=== PATIENT | female | born 1995 | race Caucasian/White ===

== ENCOUNTER 2016-10-11 21:47 | Outpatient (CLI) | payer MEDICAID ==
[~2016-10-11] VITALS: Ht 160 cm; Wt 75.0 kg
[~2016-10-11 21:47] MED LIST: PRENAT PO
[2016-10-11 21:56] VITALS: Ht 160 cm; Wt 75.0 kg
[2016-10-11 21:57] VITALS: BP 129/75; PULSE 129; RESP 18
[2016-10-11] MEDS ORDERED: DEXTROSE 5%-LR 1,000 ML IV SCH (22:27)
--- NOTE | 2016-10-11 22:56 | RADRPT ---
AMENDMENT: 10/11/2016 11:44:41 PM Jesse Gonzalez M.D No evidence of placental abruption is seen on the provided images. The cervix is not visualized, pr ecluding evaluation for placenta previa. PROCEDURE: OB ultrasound for biophysical profile CLINICAL INDICATION: Contractions. TECHNIQUE: Multiple sonographic images of the pelvis were obtained. Transabdominal view of the gr avid uterus are available for review. The images were reviewed on a PACS workstation. COMPARISON: 06/10/2016. FINDINGS: breathing movement = 2/2 tone = 2/2 motion = 2/2 Amniotic fluid = 2/2 RUBEN = 16.6 cm Single live intrauterine in cephalic presentation with cardiac activity (154 bpm). Anterior placenta, grade 1. IMPRESSION: 1. Single viable intrauterine gestation. 2. Biophysical profile = 05/11. 3. RUBEN = 16.6 cm. RPTAT: HTAR .Jesse Gonzalez MD, Date Time Electronically viewed and signed by .Jesse Gonzalez MD, on 10/11/2016 23:45 .R/
--- NOTE | 2016-10-12 01:15 | QN ---
Documentation Comment Laborist for an ER panel pt. 20 y.o. with an IUP at 31 w 4 d c/o fever and body aches since yesterday. Pt reports a temperature of 101.3 earlier today for which she took Tylenol. Angelica wolf also has a non-productive cough and has noticed some vaginal fluid after coughing. It is clear,per the pt. + movement. No vaginal bleeding. Past medical hx; none. Past surgical history: x 2. NKDA. T+ 98.4 BP+129/75. NST:baseline 150 BPM with accels to 170 BPM. No decsl. No UC's. Rom-Plus test negative x 2. fibronectin was negative. Cx: thick/FT/-3. BPP 8/8 and the RUBEN is 16.6. Pt was hydrated with a liter of D5LR and felt much less achey and was ready for discharge home. A: IUP at 31 weeks 5 days. Upper respiratory infection. Plan: D/C home with instructions to hydrate, rest and to call her doctor for a Z [place] if her cough becomes productive with a green or yellow phlegm. She may take Tylenol for body aches and fever. VLADISLAV GOODRICH MD Oct 12, 2016 01:15
--- NOTE | 2016-10-12 02:18 | TRIAGE ---
OB Triage Datetime Report Generated by CPN: 10/12/2016 02:18 Datetime: 10/12/2016 01:00 Stage of : OB Triage Pain Presence: None/Denies Pain Assessment Comments: PT STATES SHE FEELS BETTER Datetime: 10/12/2016 00:40 Stage of : OB Triage Labor Evaluation Frequency: 0 Monitor Mode: External Quality: Mild Pattern: Normal: <= 5 Contractions in 10 Minutes Resting Tone [place]: Relaxed Contraction Comments: IRRITABILITY NOTED Heart Rate FHR Baseline Rate: 155 Monitor Mode: External US FHR Baseline Changes: No Baseline Change Variability: Moderate 6-25 bpm Accelerations: 15X15 Decelerations: None Category: Category I Datetime: 10/11/2016 23:40 Labor Evaluation Frequency: 0 Heart Rate FHR Baseline Rate: 155 Monitor Mode: External US FHR Baseline Changes: No Baseline Change Variability: Moderate 6-25 bpm Accelerations: 15X15 Decelerations: None Category: Category I Datetime: 10/11/2016 23:23 Stage of : OB Triage Datetime: 10/11/2016 22:40 Labor Evaluation Frequency: IRREGULAR Monitor Mode: External Duration (sec)2399: 60 Quality: Mild Pattern: Normal: <= 5 Contractions in 10 Minutes Resting Tone [place]: Relaxed Heart Rate FHR Baseline Rate: 155 Monitor Mode: External US FHR Baseline Changes: No Baseline Change Variability: Moderate 6-25 bpm Accelerations: 15X15 Decelerations: None Category: Category I Datetime: 10/11/2016 22:24 Stage of : OB Triage Datetime: 10/11/2016 22:15 Stage of : OB Triage Vaginal Exam Dilatation (cms): 0.0 Effacement (%): 0 Station: -3 Exam By: Sami CARCAMO RN Membrane Status: PT UNSURE IF LEAKING Vaginal Bleeding: None Pool: Negative ROM Test Kit: OBTAINED Cervix, Consistency: Firm Cervix, Position: Posterior Datetime: 10/11/2016 21:57 Time of Arrival: 10/11/2016 21:43 EGA: 31.4 Arrived By: Wheelchair Arrived From: Home Chief Complaint: C/O FEVER AND BODY ACHE Movement: Present Rupture of Membranes: Unsure Vaginal Bleeding: None Recent Sexual Intercouse: Denies Abdominal Trauma: Not Applicable Patient Complaints: None Time Provider Notified: 10/11/2016 22:24 Provider Notified: DR GOODRICH Initial Plan: CALL MD, EFM Datetime: 10/11/2016 21:55 Stage of : OB Triage Maternal Assessment Level of Consciousness: Fully Conscious DTR's/Clonus: DTRs 2+; No Clonus Headache: Denies Blurred Vision: No Respiratory Effort: Unlabored; Regular Rhythm; Equal Expansion Breath Sounds, Left: Clear and Equal Breath Sounds, Right: Clear and Equal Nausea/Vomiting: Denies RUQ Epigastric Pain: Denies Lower Extremities Edema: None Degree: None Upper Extremities Edema: None Degree: None Facial Edema: None Temperature Route: Oral Fall Risk Assessment History of Falling: (0) No Secondary Diagnosis: (0) No Ambulatory Aid: (0) Bedrest/Nurse Assist IV Therapy: (0) No Gait: (0) Normal/Bedrest/Immobile Mental Status: (0) Oriented to Own Ability Fall Score: 0 Fall Risk Score Definition: No Risk: No action required Monitor Mode: External Monitor Mode: External US Pain Assessment Pain Scale: 8 Pain Presence: Constant Pain Type: Ache Pain Location: Other (Annotations: WHOLE BODY) Datetime: 09/28/2016 18:43 Comments: PT SEEN BY DR FOROOHAR.SP EXAM DONE.NO REDNESS NOTICED. CX CLOSED.PT DC HOME DC INSTRUCT IONS GIVEN Datetime: 09/28/2016 18:13 Labor Evaluation Frequency: NONE Pattern: Normal: <= 5 Contractions in 10 Minutes Resting Tone [place]: Relaxed Heart Rate FHR Baseline Rate: 135 Monitor Mode: External US FHR Baseline Changes: No Baseline Change Variability: Moderate 6-25 bpm Accelerations: 15X15 Decelerations: None Category: Category I Datetime: 09/28/2016 17:38 EGA: 29.5 Maternal Assessment Level of Consciousness: Fully Conscious DTR's/Clonus: DTRs 2+; No Clonus Headache: Denies Blurred Vision: No Respiratory Effort: Unlabored; Regular Rhythm; Equal Expansion Breath Sounds, Left: Clear and Equal Breath Sounds, Right: Clear and Equal Nausea/Vomiting: Denies RUQ Epigastric Pain: Denies Lower Extremities Edema: None Degree: None Upper Extremities Edema: None Degree: None Facial Edema: None Fall Risk Assessment History of Falling: (0) No Secondary Diagnosis: (0) No Ambulatory Aid: (0) Bedrest/Nurse Assist IV Therapy: (0) No Gait: (0) Normal/Bedrest/Immobile Mental Status: (0) Oriented to Own Ability Fall Score: 0 Fall Risk Score Definition: No Risk: No action required Labor Evaluation Frequency: NONE Monitor Mode: External Pattern: Normal: <= 5 Contractions in 10 Minutes Heart Rate FHR Baseline Rate: 140 Monitor Mode: External US FHR Baseline Changes: No Baseline Change Variability: Moderate 6-25 bpm Accelerations: 15X15 Decelerations: None Category: Category I Pain Presence: None/Denies Datetime: 09/28/2016 17:36 Time of Arrival: 09/28/2016 17:36 Arrived By: Ambulatory Arrived From: Other Unit in Hospital Chief Complaint: FROM E.R C/O VAGINAL ITCHING Movement: Present Contractions: Denies/Absent Rupture of Membranes: Denies Vaginal Bleeding: None Vaginal Discharge: Denies Recent Sexual Intercouse: Denies Abdominal Trauma: Not Applicable Patient Complaints: Other Time Provider Notified: 09/28/2016 17:30 Provider Notified: BERNICE Initial Plan: NST.UA SENT Datetime: 09/28/2016 17:32 Comments: DR QUEEN INFORMED.ORDERS RECEIVED
== END 2016-10-12 01:12 | disposition home or self-care (01) ==
LOC: L-D 21:47 → OBT 21:47
PROVIDERS: ATTEND Obstetrics & Gynecology
DX: O99.513 Diseases of the respiratory system complicating pregnancy, third trimester (principal); J06.9 Acute upper respiratory infection, unspecified; Z3A.31 31 weeks gestation of pregnancy
CPT/HCPCS: 36415; 76818; 82731; 84112; 96360; 96361; J7121; Z7500; G0463

== ENCOUNTER 2016-11-17 20:47 | Outpatient (CLI) | payer MEDICAID ==
[~2016-11-17] VITALS: Ht 157.5 cm; Wt 77.4 kg
[2016-11-17 20:58] VITALS: BP 125/68; PULSE 77; RESP 18
[2016-11-17] MEDS ORDERED: CALC600T11 PO (21:03)
[2016-11-17] MEDS ORDERED: FERR134T PO (21:03)
[2016-11-17] MEDS ORDERED: TERBUTALINE 1 MG/ML INJ SC ONE (22:00)
[2016-11-17 22:10] LABS: ADD UMIC NO; URINE BILIRUBIN (Dip) NEGATIVE (NEGATIVE); URINE BLOOD (Dip) NEGATIVE (NEGATIVE); URINE COLOR LT. YELLOW (YELLOW); URINE GLUCOSE (Dip) NEGATIVE (NEGATIVE); URINE KETONES (Dip) 40 (NEGATIVE); URINE LEUKOCYTE ESTERASE (Dip) NEGATIVE (NEGATIVE); URINE NITRITE (Dip) NEGATIVE (NEGATIVE); URINE TOTAL PROTEIN (Dip) NEGATIVE (NEGATIVE); URINE UROBILINOGEN (Dip) 0.2 E.U./dL (0.1-1.0)
--- NOTE | 2016-11-17 23:56 | QN ---
Documentation Comment Laborist ER panel pt 20 y.o. with an IUP at 36 weeks 6 days, c/o UC's. Pt had had 2 prior C/S' s. She goes to a clinic with a Dr Maier who apparently only delivers at [facility] but pt wants to deliver here. The patient states that she was told she would be "assigned" a doctor here for that but it has not yet happened. Pt lives nearby, apparently. No VB. No leaking. PMHx: none. PSHx: C/S x 2. POBHx: x 1, C/S x 2. NKDA. T= 97.8. BP 125/68. NST:baseline 130 bpm with accels to 160 bpm. No decels. UC's were q 2-5 minutes. After p.o. hydration and terbutaline once they basically went away. CX: 50%/ fingertip/-2-3. A: IUP at 36 weeks 6 days. False labor. Previous x 2- for repeat. Pt given a note to ask for a copy of her records and to ask to assign her to her delivering doctor NOW as the doctor at the clinic only delivers at [facility]. VLADISLAV GOODRICH MD Nov 17, 2016 23:56
--- NOTE | 2016-11-18 00:36 | TRIAGE ---
OB Triage Datetime Report Generated by CPN: 11/18/2016 00:36 Datetime: 11/17/2016 22:36 Stage of : OB Triage Monitor Mode: External Quality: Mild Resting Tone [place]: Relaxed Contraction Comments: toco replaced Heart Rate FHR Baseline Rate: 135 Monitor Mode: External US FHR Baseline Changes: No Baseline Change Variability: Moderate 6-25 bpm Accelerations: 15X15 Decelerations: None Category: Category I Pain Assessment Pain Scale: 5 Pain Presence: Intermittent Pain Type: Cramping; Dull; Pressure; Ache Pain Location: Abdomen; Back Datetime: 11/17/2016 22:03 Monitor Mode: External Quality: Mild Pattern: Normal: <= 5 Contractions in 10 Minutes Resting Tone [place]: Relaxed Heart Rate FHR Baseline Rate: 135 Monitor Mode: External US FHR Baseline Changes: No Baseline Change Variability: Moderate 6-25 bpm Accelerations: 15X15 Decelerations: None Category: Category I Datetime: 11/17/2016 21:45 Stage of : OB Triage Labor Evaluation Frequency: OCCAS Monitor Mode: External Duration (sec)2399: 20-40SEC Quality: Mild Pattern: Normal: <= 5 Contractions in 10 Minutes Resting Tone [place]: Relaxed Heart Rate FHR Baseline Rate: 135 Monitor Mode: External US FHR Baseline Changes: No Baseline Change Variability: Moderate 6-25 bpm Accelerations: 15X15 Decelerations: None Category: Category I Datetime: 11/17/2016 21:12 Stage of : OB Triage Datetime: 11/17/2016 21:11 Vaginal Exam Dilatation (cms): 0.5 Effacement (%): 50 Station: -2 Exam By: ZACOPE Membrane Status: Intact Amniotic Fluid Odor: None Vaginal Bleeding: None Cervix, Consistency: Moderate Cervix, Position: Posterior Datetime: 11/17/2016 21:02 Monitor Mode: External Quality: Mild Pattern: Normal: <= 5 Contractions in 10 Minutes Resting Tone [place]: Relaxed Heart Rate FHR Baseline Rate: 135 Monitor Mode: External US FHR Baseline Changes: No Baseline Change Variability: Moderate 6-25 bpm Accelerations: 15X15 Decelerations: None Category: Category I Datetime: 11/17/2016 20:51 Maternal Assessment Level of Consciousness: Fully Conscious Headache: Denies Blurred Vision: No Nausea/Vomiting: Denies RUQ Epigastric Pain: Denies Facial Edema: None Labor Evaluation Frequency: placed Monitor Mode: External Heart Rate FHR Baseline Rate: 140 Monitor Mode: External US Pain Assessment Pain Scale: 8 Pain Presence: Constant Pain Type: Dull; Pressure Pain Location: Back; Perineum Datetime: 11/17/2016 20:50 Time of Arrival: 11/17/2016 20:44 EGA: 36.6 Arrived By: Wheelchair Arrived From: Home Chief Complaint: w/ hx c/s x3 w/ c/o back pain and vag pressure Movement: Present Contractions: Occasional Rupture of Membranes: Denies Vaginal Bleeding: None Vaginal Discharge: Denies Recent Sexual Intercouse: Denies Abdominal Trauma: Not Applicable Patient Complaints: Back Pain Time Provider Notified: 11/17/2016 21:11 Provider Notified: Dr Almaraz Initial Plan: EFM, SVE Datetime: 10/11/2016 21:57 EGA: 31.4 Datetime: 10/11/2016 21:55 Fall Risk Assessment Fall Score: 0 Fall Risk Score Definition: No Risk: No action required Datetime: 09/28/2016 17:38 EGA: 29.5 Fall Risk Assessment Fall Score: 0 Fall Risk Score Definition: No Risk: No action required
== END 2016-11-17 23:50 | disposition home or self-care (01) ==
LOC: OBT 20:47 → L-D 20:48 → OBT 23:50
PROVIDERS: ATTEND Obstetrics & Gynecology
DX: O47.03 False labor before 37 completed weeks of gestation, third trimester (principal); Z3A.36 36 weeks gestation of pregnancy
CPT/HCPCS: 81003; J3105; G0463

== ENCOUNTER 2016-11-23 01:00 | Outpatient (CLI) | payer MEDICAID ==
[~2016-11-23] VITALS: Ht 157.5 cm; Wt 79.5 kg
[~2016-11-23 01:00] MED LIST changes: +CALC600T11 PO; +FERR134T PO
[2016-11-23 01:07] VITALS: BP 125/71; PULSE 93; RESP 18; Ht 157.5 cm; Wt 79.5 kg
[2016-11-23 03:02] LABS: ADD UMIC NO; URINE BILIRUBIN (Dip) NEGATIVE (NEGATIVE); URINE BLOOD (Dip) NEGATIVE (NEGATIVE); URINE COLOR LT. YELLOW (YELLOW); URINE GLUCOSE (Dip) NEGATIVE (NEGATIVE); URINE KETONES (Dip) NEGATIVE (NEGATIVE); URINE LEUKOCYTE ESTERASE (Dip) NEGATIVE (NEGATIVE); URINE NITRITE (Dip) NEGATIVE (NEGATIVE); URINE TOTAL PROTEIN (Dip) NEGATIVE (NEGATIVE); URINE UROBILINOGEN (Dip) 0.2 E.U./dL (0.1-1.0)
[2016-11-23] MEDS ORDERED: HYDROCODONE/APAP (5/325) TAB PO ONE (03:30)
--- NOTE | 2016-11-23 03:43 | QN ---
Documentation Comment Comment Laborist ER panel pt 20 y.o. with an IUP at 37 weeks 5 days, c/o back pain since 1900. Pt had had 2 prior C/S's. She has been going to a clinic with a Dr Maier who apparently only delivers at [facility] but pt wants to deliver here. The patient states that she was told she would be "assigned" a doctor here for that and that seems to be Dr Duke. No VB. No leaking. PMHx: none. PSHx: C/S x 2. POBHx: x 1, C/S x 2. NKDA. T= 98.4. BP 125/71. NST:baseline 130 bpm with accels to 150 bpm. No decels. No UC's noted. CX: 30%/ fingertip/-3. A: IUP at 37 weeks 5 days. False labor. Previous x 2- for repeat. P: [place] 5/325 for her back pain, then d/c home. VLADISLAV GOODRICH MD Nov 23, 2016 03:43
--- NOTE | 2016-11-23 04:44 | TRIAGE ---
OB Triage Datetime Report Generated by CPN: 11/23/2016 04:44 Datetime: 11/23/2016 04:32 Labor Evaluation Frequency: NONE NOTED AT THIS TIME Monitor Mode: External Resting Tone [place]: Relaxed Heart Rate FHR Baseline Rate: 125 Monitor Mode: External US Variability: Moderate 6-25 bpm Accelerations: 15X15 Decelerations: None Category: Category I Pain Assessment Pain Scale: 4 Pain Presence: Intermittent Pain Type: Cramping; Ache Pain Location: Back Pain Relief Measures: Comfort Measures Datetime: 11/23/2016 03:53 Pain Assessment Pain Scale: 5 Pain Presence: Intermittent Pain Type: Cramping; Ache Pain Location: Back Pain Relief Measures: Pain Medication Given; Comfort Measures Datetime: 11/23/2016 03:30 Labor Evaluation Frequency: NONE AT THIS TIME Monitor Mode: External Resting Tone [place]: Relaxed Heart Rate FHR Baseline Rate: 135 Monitor Mode: External US Variability: Moderate 6-25 bpm Accelerations: 15X15 Decelerations: None Category: Category I Datetime: 11/23/2016 02:30 Labor Evaluation Frequency: NONE AT THIS TIME Monitor Mode: External Resting Tone [place]: Relaxed Heart Rate FHR Baseline Rate: 140 Monitor Mode: External US Variability: Moderate 6-25 bpm Accelerations: 15X15 Decelerations: None Category: Category I Datetime: 11/23/2016 01:39 Vaginal Exam Dilatation (cms): 0.5 Effacement (%): 30 Station: -3 Exam By: Alphonse PAVON RN Membrane Status: Intact Vaginal Bleeding: None Cervix, Consistency: Firm Cervix, Position: Posterior Datetime: 11/23/2016 01:37 Labor Evaluation Frequency: NONE NOTED AT THIS TIME Monitor Mode: External Resting Tone [place]: Relaxed Heart Rate FHR Baseline Rate: 140 Monitor Mode: External US Variability: Moderate 6-25 bpm Accelerations: 15X15 Decelerations: None Category: Category I Datetime: 11/23/2016 01:09 Time of Arrival: 11/23/2016 00:57 EGA: 37.5 Arrived By: Ambulatory Arrived From: Home Chief Complaint: BACK PAIN SINCE 1899 Movement: Present Contractions: Irregular Rupture of Membranes: Denies Vaginal Bleeding: None Vaginal Discharge: Denies Recent Sexual Intercouse: Denies Abdominal Trauma: Not Applicable Patient Complaints: Back Pain Time Provider Notified: 11/23/2016 01:43 Provider Notified: DELSHAD Initial Plan: EFM X2, SVE Datetime: 11/23/2016 01:07 Stage of : OB Triage Assessment Type: Triage Maternal Assessment Level of Consciousness: Fully Conscious DTR's/Clonus: DTRs 2+; No Clonus Headache: Denies Blurred Vision: No Respiratory Effort: Unlabored; Regular Rhythm; Equal Expansion Breath Sounds, Left: Clear and Equal Breath Sounds, Right: Clear and Equal Nausea/Vomiting: Denies RUQ Epigastric Pain: Denies Lower Extremities Edema: None Degree: None Upper Extremities Edema: None Degree: None Facial Edema: None Temperature Route: Oral Fall Risk Assessment History of Falling: (0) No Secondary Diagnosis: (0) No Ambulatory Aid: (0) Bedrest/Nurse Assist IV Therapy: (0) No Gait: (0) Normal/Bedrest/Immobile Mental Status: (0) Oriented to Own Ability Fall Score: 0 Fall Risk Score Definition: No Risk: No action required Pain Assessment Pain Scale: 6 Pain Presence: Intermittent Pain Type: Cramping; Ache Pain Location: Back Pain Relief Measures: Comfort Measures Datetime: 11/23/2016 01:06 Monitor Mode: External (Annotations: APPLIED) Monitor Mode: External US (Annotations: APPLIED) Datetime: 11/17/2016 23:37 Stage of : OB Triage Monitor Mode: External Quality: Mild Pattern: Normal: <= 5 Contractions in 10 Minutes Resting Tone [place]: Relaxed Heart Rate FHR Baseline Rate: 135 Monitor Mode: External US FHR Baseline Changes: No Baseline Change Variability: Moderate 6-25 bpm Accelerations: 15X15 Decelerations: None Category: Category I Datetime: 11/17/2016 20:50 EGA: 36.6 Datetime: 10/11/2016 21:57 EGA: 31.4 Datetime: 10/11/2016 21:55 Fall Score: 0 Fall Risk Score Definition: No Risk: No action required Datetime: 09/28/2016 17:38 EGA: 29.5 Fall Score: 0 Fall Risk Score Definition: No Risk: No action required
== END 2016-11-23 04:40 | disposition home or self-care (01) ==
LOC: OBT 01:00 → L-D 01:00 → OBT 04:40
PROVIDERS: ATTEND Obstetrics & Gynecology
DX: O47.1 False labor at or after 37 completed weeks of gestation (principal); Z3A.37 37 weeks gestation of pregnancy
CPT/HCPCS: 81003; Z7500; Z7610; G0463

== ENCOUNTER 2016-11-26 19:19 | Inpatient (IN) | payer MEDICAID ==
[~2016-11-26] VITALS: Ht 160 cm; Wt 78.6 kg
[~2016-11-26 19:19] MED LIST changes: -CALC600T11 PO; -FERR134T PO
[2016-11-26 19:40] VITALS: Ht 160 cm; Wt 78.6 kg
[2016-11-26 19:41] VITALS: BP 129/74; PULSE 93; RESP 18
[2016-11-26] MEDS ORDERED: LACTATED RINGER'S 1,000 ML IV SCH (21:10)
[2016-11-26] MEDS ORDERED: MISOPROSTOL 200 MCG TAB PR PRN ×2 (21:30→23:00)
[2016-11-26] MEDS ORDERED: OXYTOCIN 30 UNITS/LR 500 ML IV PRN ×2 (21:30→23:00)
[2016-11-26] MEDS ORDERED: CARBOPROST 250 MCG INJ IM PRN ×2 (21:30→23:00)
[2016-11-26] MEDS ORDERED: CEFAZOLIN 2 GM/50 ML (PMX) 50 ML IV SCH (21:30)
[2016-11-26] MEDS ORDERED: METHYLERGONOVINE 0.2 MG INJ IM PRN ×2 (21:30→23:00)
[2016-11-26] MEDS ORDERED: CITRIC ACID/NA CITRATE 30 ML CUP PO ONE (21:30)
[2016-11-26 21:32] LABS: ADD SCAN DIFF NO
[2016-11-26 21:38] LABS: BASOPHILS % 0.2 % (0.0-2.0); EOSINOPHILS # 0.5 10^3/ul (0.0-0.5); EOSINOPHILS % 3.9 % (0.0-7.0); HEMATOCRIT 38.9 % (37.0-47.0); HEMOGLOBIN 13.1 g/dl (12.0-16.0); LYMPHOCYTES % 16.6 % (15.0-51.0); MEAN CORPUSCULAR HEMOGLOBIN 30.3 pg (29.0-33.0); MEAN CORPUSCULAR HGB CONC 33.7 g/dl (32.0-37.0); MEAN CORPUSCULAR VOLUME 89.8 fl (82.0-101.0); MONOCYTE # 0.6 10^3/ul (0.3-0.9); MONOCYTES % 4.8 % (0.0-11.0); NEUTROPHILS % 73.5 % (39.0-77.0); PLATELET COUNT 170 10^3/UL (140-415); RED BLOOD COUNT 4.33 10^6/ul (4.20-5.40); RED CELL DISTRIBUTION WIDTH 13.3 % (11.5-14.5); WHITE BLOOD COUNT 12.2 10^3/ul (4.8-10.8)
--- NOTE | 2016-11-26 21:41 | HP ---
Date/Time of Note Date/Time of Note DATE: 11/26/16 TIME: 21:16 OB - History Hx of Present Free Text/Dictation 20yo P3@ 38 wks, previous c/d x 2, presents in early labor, ctx q minute no vb, no lof, good fm Chief Complaint: ctx, prior c/d x 2 Last Menstrual Period: Mar 04, 2016 Estimated Due Date: Dec 09, 2016 : 4 Para: 3 Care: Good Care Obstetrical Complications: None Past Family/Social History * Past Medical, Surgical, Family and Obstetric Histories reviewed from chart. Blood Type: A+ Rubella: immune RPR/VDRL: Negative GBS Status: Negative HBsAG: Negative OB Admission Exam Vital Signs Vital Signs Vital Signs Date Time Temp Pulse Resp B/P Pulse Ox O2 Delivery O2 Flow Rate FiO2 11/26/16 19:41 97.8 93 18 129/74 Room Air Physical Exam HEENT: WNL Cervical Dilatation: 1cm Effacement: 75% Station: -2 Membranes: Intact Accelerations: Accelerations Present Decelerations: No Decelerations Varibility: Moderate Contractions on Admission: < 5 Minutes Apart Intensity: Moderate OB Assessment/Plan Other Assessment: 20 yo P3 @ 38 wks, prior c/d x 2, in early labor - prior c/d x 2- explained risks of bleeding, infection, possible accreta, possible hysterectomy, possible need for blood transfusion Other plan: Will proceed to repeat c/d EDDIE HEARD MD Nov 26, 2016 21:41
[2016-11-26 21:45] LABS: INR 0.91; PARTIAL THROMBOPLASTIN TIME 23.3 Sec (25.0-35.0); PROTIME 12.2 Sec (12.2-14.2)
[2016-11-26] MEDS ORDERED: morphine SULFATE/PF (10 MG/10 ML) INJ ONE (21:50)
[2016-11-26] MEDS ORDERED: PHENYLephrine (100 MCG/ML) 5ML SYG ONE (22:02)
[2016-11-26] MEDS ORDERED: KETOROLAC 30 MG INJ ONE (22:02)
[2016-11-26] MEDS ORDERED: ONDANSETRON 4 MG INJ ONE (22:02)
[2016-11-26] MEDS ORDERED: OXYTOCIN 30 UNITS/LR 500 ML IV ONE (22:48)
--- NOTE | 2016-11-26 22:56 | OPR ---
Operative Report Planned Procedure Free Text/Dictation 20 yo P w/ h/o 2 prior c/d, presented in early labor Procedure date Nov 26, 2016 Procedure(s) repeat c/d Performed by: EDDIE HEARD MD Assisting provider: RANDY DE LA ROSA MD Pre-procedure diagnosis prior c/d, early labor Anesthesia Type: spinal Procedure Description Under satisfactory [spinal] anesthesia, the patient was prepped and draped and placed in a supine position, tilted to the left. Pfannenstiel incision was made , carried through the subcutaneous tissue. Old scar was removed. Bleeders brought under control with electrocautery. Fascia incised to the length of the incision. Rectus muscles from the fascia, divided midline. Peritoneum exposed, entered bluntly. Exploration of abdomen revealed gravid uterus. Bladder flap was attempted but uterus was paper thin. Transverse incision was made in the lower segment of the uterus. Amniotic sac ruptured. [clear] amniotic fluid noted. head delivered w vaccuum assistance.[] Nasal oropharyngeal suction was performed. The baby was handed to the team for immediate attention. The placenta was delivered manually intact. Uterine cavity was cleaned with wet sponge and drainage established. Uterus closed in 2 layers using [0 vicry] in continuous fashion. Peritoneal cavity irrigated with warm saline. Sponge, needle and instrument count reported to be correct. Abdominal peritoneum closed with [2 vicryl] continuously. Rectus muscle approximated with [3 vicryl]. Fascia closed with [0 vicryl], subcutaneous tissues closed w 2 vicryl, and skin closed with eduardo. Estimated blood loss [ 800]mL. Post-Procedure Findings: Live Baby [girl], Apgars [9] and 9[], weight [6lbs 2 oz], Complications: None Pt Condition post procedure: stable Physician Certification I, the undersigned physician, hereby certify that I have discussed the procedure described in this consent form with this patient (or the patient's legal rental representative), including: * The risk and benefits of the procedure; * Any adverse reactions that may reasonably be expected to occur; * Any alternative efficacious methods of treatment which may be medically viable ; * The potential problems that may occur during recuperation; * Potential for blood transfusion and associated risks/benefits; and * Any research or economic interest I may have regarding this treatment. I further certify that the patient/legally responsible person was encouraged to ask question and that all questions were answered. EDDIE HEARD MD Nov 26, 2016 22:56
[2016-11-26] MEDS ORDERED: ACETAMINOPHEN/CODEINE #3 TAB PO PRN (23:00)
[2016-11-26] MEDS ORDERED: ONDANSETRON 4 MG INJ IV PRN ×2 (23:00)
[2016-11-26] MEDS ORDERED: KETOROLAC 30 MG INJ IV PRN (23:00)
[2016-11-26] MEDS ORDERED: MEPERIDINE 25 MG INJ IV PRN (23:00)
[2016-11-26] MEDS ORDERED: METOCLOPRAMIDE 10 MG INJ IV PRN (23:00)
[2016-11-26] MEDS ORDERED: DIPHENHYDRAMINE 50 MG INJ IV PRN ×2 (23:00)
[2016-11-26] MEDS ORDERED: HYDROmorphONE 1 MG/ML SYG IV PRN ×3 (23:00)
[2016-11-26] MEDS ORDERED: NALOXONE (0.4 MG/ML) INJ IV PRN (23:00)
[2016-11-26] MEDS ORDERED: LANOLIN 7 GM TUBE TOP PRN (23:00)
[2016-11-26] MEDS ORDERED: HYDROmorphONE (0.2 MG/ML) 10ML SYG IV PRN ×2 (23:00)
[2016-11-26] MEDS ORDERED: CEFAZOLIN 2 GM/50 ML (PMX) 50 ML IV ONE (23:00)
[2016-11-27] MEDS: OXYTOCIN 30 UNITS/LR 500 ML IV SCH ×2 (02:00→05:52)
[2016-11-27 02:30] VITALS: BP 116/59; PULSE 65; RESP 18
[2016-11-27] MEDS: HYDROmorphONE (0.2 MG/ML) 10ML SYG IV PRN ×2 (02:54→02:55)
[2016-11-27 04:30] VITALS: BP_SYST 119; BP_SYST 99; BP_DIAS 53; BP_DIAS 70; PULSE 71; PULSE 91; RESP 18
[2016-11-27] MEDS: IBUPROFEN 800 MG TAB PO SCH ×3 (06:00→22:07)
[2016-11-27 07:41] LABS: ADD SCAN DIFF NO
[2016-11-27 07:45] LABS: BASOPHILS % 0.2 % (0.0-2.0); EOSINOPHILS # 0.5 10^3/ul (0.0-0.5); HEMATOCRIT 35.5 % (37.0-47.0); HEMOGLOBIN 11.5 g/dl (12.0-16.0); LYMPHOCYTES # 2.4 10^3/ul (0.8-2.9); LYMPHOCYTES % 15.5 % (15.0-51.0); MEAN CORPUSCULAR HEMOGLOBIN 29.6 pg (29.0-33.0); MEAN CORPUSCULAR HGB CONC 32.4 g/dl (32.0-37.0); MEAN CORPUSCULAR VOLUME 91.3 fl (82.0-101.0); MONOCYTE # 0.9 10^3/ul (0.3-0.9); MONOCYTES % 5.7 % (0.0-11.0); NEUTROPHIL # 11.4 10^3/ul (1.6-7.5); NEUTROPHILS % 75.1 % (39.0-77.0); PLATELET COUNT 149 10^3/UL (140-415); RED BLOOD COUNT 3.89 10^6/ul (4.20-5.40); RED CELL DISTRIBUTION WIDTH 13.5 % (11.5-14.5); WHITE BLOOD COUNT 15.1 10^3/ul (4.8-10.8)
[2016-11-27 08:00] VITALS: BP 99/51; PULSE 77; RESP 18
[2016-11-27] MEDS: LACTATED RINGER'S 1,000 ML IV SCH ×2 (09:40→16:43)
[2016-11-27 12:15] VITALS: BP 100/50; PULSE 72; RESP 16
[2016-11-27] MEDS ORDERED: INFLUENZA VIRUS VACCINE 0.5 ML (DISPENSING) IM* ONE (14:00)
[2016-11-27 16:00] VITALS: BP 103/51; PULSE 79; RESP 18
--- NOTE | 2016-11-27 18:00 | QN ---
Documentation Comment No complaint Afebrile VSS Abdomen soft POD #1 Stable Ambulate Advance diet. NEEMA MCKEON MD Nov 27, 2016 18:00
[2016-11-27 19:20] VITALS: BP 100/62; PULSE 75; RESP 19
[2016-11-28 04:00] VITALS: BP 100/60; PULSE 80; RESP 19
[2016-11-28] MEDS: IBUPROFEN 800 MG TAB PO SCH ×3 (05:30→22:10)
[2016-11-28 07:42] LABS: ADD SCAN DIFF NO
[2016-11-28 07:49] LABS: BASOPHILS % 0.1 % (0.0-2.0); EOSINOPHILS # 0.5 10^3/ul (0.0-0.5); EOSINOPHILS % 5.2 % (0.0-7.0); HEMATOCRIT 31.3 % (37.0-47.0); HEMOGLOBIN 10.1 g/dl (12.0-16.0); LYMPHOCYTES # 1.8 10^3/ul (0.8-2.9); LYMPHOCYTES % 18.7 % (15.0-51.0); MEAN CORPUSCULAR HEMOGLOBIN 29.9 pg (29.0-33.0); MEAN CORPUSCULAR HGB CONC 32.3 g/dl (32.0-37.0); MEAN CORPUSCULAR VOLUME 92.6 fl (82.0-101.0); MEAN PLATELET VOLUME 11.1 fl (7.4-10.4); MONOCYTE # 0.7 10^3/ul (0.3-0.9); MONOCYTES % 7.5 % (0.0-11.0); NEUTROPHIL # 6.7 10^3/ul (1.6-7.5); NEUTROPHILS % 67.9 % (39.0-77.0); PLATELET COUNT 132 10^3/UL (140-415); RED BLOOD COUNT 3.38 10^6/ul (4.20-5.40); RED CELL DISTRIBUTION WIDTH 13.6 % (11.5-14.5); WHITE BLOOD COUNT 9.8 10^3/ul (4.8-10.8)
[2016-11-28 08:10] VITALS: BP 104/64; PULSE 80; RESP 16
[2016-11-28] MEDS ORDERED: INFLUENZA VIRUS VACCINE 0.5 ML (DISPENSING) IM* ONE (09:00)
[2016-11-28 16:30] VITALS: BP 117/62; PULSE 71; RESP 17
--- NOTE | 2016-11-28 16:42 | QN ---
Documentation Comment No complaint Afebrile VSS Abdomen soft Continue with present care. NEEMA MCKEON MD Nov 28, 2016 16:42
[2016-11-28] MEDS: ACETAMINOPHEN/CODEINE #3 TAB PO PRN (17:24)
[2016-11-28 19:30] VITALS: BP 102/67; PULSE 71; RESP 18
[2016-11-29] MEDS: ACETAMINOPHEN/CODEINE #3 TAB PO PRN ×2 (01:24→13:15)
[2016-11-29 04:00] VITALS: BP 112/68; PULSE 72; RESP 18
[2016-11-29] MEDS: IBUPROFEN 800 MG TAB PO SCH ×3 (05:45→22:30)
[2016-11-29 08:30] VITALS: BP 102/57; PULSE 69; RESP 18
[2016-11-29] MEDS ORDERED: INFLUENZA VIRUS VACCINE 0.5 ML (DISPENSING) IM* ONE (09:00)
--- NOTE | 2016-11-29 15:23 | QN ---
Documentation Comment pod 2 pt doing well vss exam enl ap pod 2 contineue care ANNAMARIA CORLEY MD Nov 29, 2016 15:23
[2016-11-29 19:45] VITALS: BP 117/59; PULSE 56; RESP 18
[2016-11-30 04:30] VITALS: BP 109/66; PULSE 74; RESP 18
[2016-11-30] MEDS: IBUPROFEN 800 MG TAB PO SCH ×2 (06:00→14:16)
[2016-11-30 08:15] VITALS: BP 106/66; PULSE 54; RESP 18
[2016-11-30 17:00] VITALS: BP 110/67; PULSE 58; RESP 20
--- NOTE | 2016-12-01 00:22 | DS ---
DATE OF ADMISSION: 11/26/2016 DATE OF DISCHARGE: 11/30/2016 ADMITTING DIAGNOSIS: at term with previous section, in labor. HISTORY: A 20-year-old female at 38 weeks' gestation with previous section x2 presented wi th labor contractions. On 11/26/2016, after obtaining informed consent, the patient underwent a rep eat section. The patient's operation was uncomplicated. Postoperatively, patient was give n clear liquid diet which was advanced to regular diet which she tolerated well. The patient is dis charged on postop day #4 after having had adequate bladder and bowel function. CONDITION ON DISCHARGE: Stable. DISCHARGE INSTRUCTIONS: DIET: Regular. ACTIVITIES: Pelvic rest and no strenuous activities. MEDICATIONS: 1. Motrin as needed for pain. 2. Continue with vitamins and ferrous sulfate. FOLLOWUP: In office in 4 days. FINAL DIAGNOSES: 1. Term delivered by section. 2. Previous section. 3. Mother with single liveborn. Dictated By: NEEMA RAMIREZ/JANUARY Conf#: [id number] DID#: [id number]
== END 2016-11-30 18:25 | disposition home or self-care (01) | DRG 766 ==
LOC: OBT 19:19 → L-D 19:19 → OBT 21:20 → L-D 21:56 → PP1 11-27 02:20
PROVIDERS: ADMIT Obstetrics & Gynecology; ATTEND Obstetrics & Gynecology
PROC: 10D00Z1 Extraction of Products of Conception, Low, Open Approach (ICD-10-PCS; principal; 2016-11-26 21:15)
PROC: 3E00X4Z Introduction of Serum, Toxoid and Vaccine into Skin and Mucous Membranes, External Approach (ICD-10-PCS; 2016-11-27)
DX: O34.211 Maternal care for low transverse scar from previous cesarean delivery (principal); Z23 Encounter for immunization; Z3A.38 38 weeks gestation of pregnancy; Z37.0 Single live birth
CPT/HCPCS: 59025; 85025; 85610; 85730; 86592; 86850; 86900; 86901; 87340; 90686; 94760; 99464; G0463; J0690; J1200; J1885; J2274; J2370; J2405; J2590; J7120

== ENCOUNTER 2017-05-09 10:24 | Emergency (ER) | END 2017-05-09 11:10 | disposition home or self-care (01) | DX: K08.89 Other specified disorders of teeth and supporting structures (principal) | CPT/HCPCS: Z7502; Z7610 ==

== ENCOUNTER 2017-07-17 23:11 | Emergency (ER) | payer MEDICAID ==
[~2017-07-17] VITALS: Ht 162.6 cm; Wt 73.0 kg
[~2017-07-17 23:11] MED LIST changes: +AMOX500C2 PO; +HYDR-906 PO
[2017-07-17 23:15] VITALS: Ht 162.6 cm; Wt 73.0 kg
[2017-07-17 23:54] LABS: URINE BLOOD (Dip) POC 2+ (NEGATIVE)
[2017-07-18] MEDS ORDERED: NITR-58 PO (00:07)
--- NOTE | 2017-07-18 00:14 | ERD ---
ER Documentation Chief Complaint Date/Time DATE: 07/18/17 TIME: 00:11 Chief Complaint vaginal brownish discharges HPI 21-year-old female complaining of brownish discharge from her vaginal area times today. Patient denies any purulent discharge or pelvic pain. Patient states started today and she never had this before. Patient is not on any control pills. Last normal menstrual period was June 10. Patient denies any fevers. Denies any sexual partners. No history of STDs. Denies medical problems. NKDA. Surgical history 3. Social history denies ROS All systems reviewed and are negative except as per history of present illness. Medications Home Meds Active Scripts Nitrofurantoin Monohyd Macrocr* (Macrobid*) 100 Mg Capsr, 100 MG PO BID for 14 Days, CAP Prov:CONNIE OAKLEY PA-C 07/18/17 Amoxicillin* (Amoxicillin*) 500 Mg Cap, 500 MG PO TID for 7 Days, CAP Prov:BUCK PITT PA-C 05/09/17 Hydrocodone/Acetaminophen ([place] 5-325 Tablet) 1 Each Tablet, 1 TAB PO Q6H Y for PAIN, #15 TAB Prov:BUCK PITT PA-C 05/09/17 Reported Medications Multivit/Min/Fol Ac/Iron/Pren* ( S*) 1 Tab Tab, 1 TAB PO DAILY, TAB 09/28/16 Allergies Allergies: Coded Allergies: No Known Allergy (Unverified , 05/09/17) PMhx/Soc History of Surgery: Yes () Anesthesia Reaction: No Hx Neurological Disorder: No Hx Respiratory Disorders: No Hx Cardiac Disorders: No Hx Psychiatric Problems: No Hx Miscellaneous Medical Probl: No Hx Alcohol Use: No Hx Substance Use: No Hx Tobacco Use: No Smoking Status: Never smoker Physical Exam Vitals Vital Signs Date Time Temp Pulse Resp B/P Pulse Ox O2 Delivery O2 Flow Rate FiO2 07/17/17 23:15 99.3 91 20 133/62 100 Physical Exam GENERAL: The patient is well-appearing, well-nourished, in no acute distress CHEST: Clear to auscultation bilaterally. There are no rales, wheezes or rhonchi. HEART: Regular rate and rhythm. No murmurs, clicks, rubs or gallops. No S3 or S4. ABDOMEN:Soft, nontender and nondistended. Good bowel sounds. No rebound or guarding. No gross peritonitis. No gross organomegaly or masses. No Zamarripa sign or McBurney point tenderness. BACK: No midline or flank tenderness. Results 24 hrs Laboratory Tests Test 07/18/17 00:02 Bedside Urine pH (LAB) 6.5 Bedside Urine Protein (LAB) Negative Bedside Urine Glucose (UA) Negative Bedside Urine Ketones (LAB) Negative Bedside Urine Blood 2+ Bedside Urine Nitrite (LAB) Negative Bedside Urine Leukocyte Esterase (L 2+ Procedures/MDM MDM: I have low suspicion for pyelonephritis. I have low suspicion for pelvic infection. I have low suspicion for acute abdomen. Patient's abdominal exam and pelvic exam is non-concerning. Patient's vital signs are stable. Patient does not have back pain. His urine does show signs of infection she will be treated with antibiotics. Patient's urine is negative. Patient will be discharged with antibiotics and strict ER precautions. Patient is told if symptoms change or worsen to return to the ER. All questions answered at discharge. Departure Diagnosis: Primary Impression: UTI (urinary tract infection) Condition: Stable Patient Instructions: Understanding Urinary Tract Infections (UTIs) Referrals: [facility] YOU HAVE RECEIVED A MEDICAL SCREENING EXAM AND THE RESULTS INDICATE THAT YOU DO NOT HAVE A CONDITION THAT REQUIRES URGENT TREATMENT IN THE EMERGENCY DEPARTMENT. FURTHER EVALUATION AND TREATMENT OF YOUR CONDITION CAN WAIT UNTIL YOU ARE SEEN IN YOUR DOCTORS OFFICE WITHIN THE NEXT 1-2 DAYS. IT IS YOUR RESPONSIBILITY TO MAKE AN APPOINTMENT FOR FOLOW-UP CARE. IF YOU HAVE A PRIMARY DOCTOR --you should call your primary doctor and schedule an appointment IF YOU DO NOT HAVE A PRIMARY DOCTOR YOU CAN CALL OUR PHYSICIAN REFERRAL HOTLINE AT IF YOU CAN NOT AFFORD TO SEE A PHYSICIAN YOU CAN CHOSE FROM THE FOLLOWING [facility] [address] [facility] [address] [facility]. [facility] [address] [facility] [address] [facility]. [facility] [address] [facility]. [facility]. [address] Additional Instructions: FOLLOW UP WITH YOUR PRIMARY CARE PHYSICIAN TOMORROW.Return to this facility if you are not improving as expected. CONNIE OAKLEY PA-C Jul 18, 2017 00:14
== END 2017-07-18 00:46 | disposition home or self-care (01) ==
LOC: FTE 23:11
DX: N39.0 Urinary tract infection, site not specified (principal)
CPT/HCPCS: 81003; Z7502; 99283

== ENCOUNTER 2017-12-24 14:17 | Emergency (ER) | END 2017-12-24 18:59 | disposition home or self-care (01) ==

== ENCOUNTER 2018-09-27 22:22 | Outpatient (CLI) | END 2018-09-28 01:34 | disposition home or self-care (01) ==

== ENCOUNTER 2018-10-12 13:21 | Inpatient (IN) | payer MEDICAID ==
[~2018-10-12] VITALS: Ht 162.6 cm; Wt 81.1 kg
[~2018-10-12 13:21] MED LIST changes: +ACET500C5 PO; -AMOX500C2 PO; -HYDR-906 PO; +OXYTOCIN 10 UNIT INJ ONE
[2018-10-12 13:33] VITALS: BP 127/72; PULSE 88; RESP 20
[2018-10-12 13:38] VITALS: Ht 162.6 cm; Wt 81.1 kg
--- NOTE | 2018-10-12 14:27 | TRIAGE ---
OB Triage Datetime Report Generated by CPN: 10/12/2018 14:27 Datetime: 10/12/2018 13:47 Vaginal Exam Dilatation (cms): 0.0 Exam By: S. Chait Vaginal Bleeding: None Cervix, Consistency: Soft Cervix, Position: Midposition Datetime: 10/12/2018 13:43 Assessment Type: Transfer/Discharge Maternal Assessment Level of Consciousness: Fully Conscious DTR's/Clonus: DTRs 2+; No Clonus Headache: Denies Blurred Vision: No Respiratory Effort: Unlabored; Regular Rhythm; Equal Expansion Nausea/Vomiting: Denies RUQ Epigastric Pain: Denies Lower Extremities Edema: None Degree: None Upper Extremities Edema: None Facial Edema: None Fall Risk Assessment History of Falling: (0) No Secondary Diagnosis: (0) No Ambulatory Aid: (0) Bedrest/Nurse Assist IV Therapy: (0) No Gait: (0) Normal/Bedrest/Immobile Mental Status: (0) Oriented to Own Ability Fall Score: 0 Fall Risk Score Definition: No Risk: No action required Datetime: 10/12/2018 13:41 Time of Arrival: 10/12/2018 13:10 EGA: 37.1 Arrived By: Ambulatory Arrived From: Home Chief Complaint: back pain/cramping x 3 hours Reports low abd pressure with urination Movement: Present Contractions: Denies/Absent Time Contractions Began: 10/12/2018 11:00 Rupture of Membranes: Unsure Vaginal Bleeding: None Vaginal Discharge: Present Recent Sexual Intercouse: Yes Abdominal Trauma: Not Applicable Patient Complaints: Back Pain Time Provider Notified: 10/12/2018 14:00 Provider Notified: HADADIAN Initial Plan: BPP/UA Datetime: 09/27/2018 22:46 Fall Score: 0 Fall Risk Score Definition: No Risk: No action required Datetime: 09/27/2018 22:45 EGA: 35.0
[2018-10-12] MEDS ORDERED: LACTATED RINGER'S 1,000 ML IV SCH (14:49)
[2018-10-12] MEDS ORDERED: CEFAZOLIN 2 GM/50 ML (PMX) 50 ML IVPB SCH (15:00)
[2018-10-12] MEDS ORDERED: CARBOPROST 250 MCG INJ IM PRN ×2 (15:00→22:00)
[2018-10-12] MEDS ORDERED: METHYLERGONOVINE 0.2 MG INJ IM PRN ×2 (15:00→22:00)
[2018-10-12] MEDS ORDERED: OXYTOCIN 30 UNITS/LR 500 ML IV PRN ×2 (15:00→22:00)
[2018-10-12] MEDS ORDERED: MISOPROSTOL 200 MCG TAB PR PRN ×2 (15:00→22:00)
--- NOTE | 2018-10-12 15:35 | TRIAGE ---
OB Triage Datetime Report Generated by CPN: 10/12/2018 15:35 Datetime: 10/12/2018 14:30 Stage of : OB Triage Level of Consciousness: Fully Conscious Frequency: 0 Monitor Mode: External Resting Tone Rodman: Relaxed FHR Baseline Rate: 135 Monitor Mode: External US Variability: Moderate 6-25 bpm Accelerations: 15X15 Decelerations: None Category: Category I Pain Scale: 0 Pain Goal: 3 Membrane Status: Intact Vaginal Bleeding: None
--- NOTE | 2018-10-12 18:07 | HP ---
Date/Time of Note Date/Time of Note DATE: 10/12/18 TIME: 18:02 OB - History Hx of Present Free Text/Dictation 22 years old with 3 previous delivery and single intrauterine at 37 weeks and 1 day with a RAMO of 11/01/2018 complaining of back pain and abdominal cramps/contractions. She states good movement. She denies nausea, vomiting, shortness of breath, chest pain, headache, visual changes, vaginal bleeding or LOF. Chief Complaint: Abdominal cramp, uterine contraction and back pain Estimated Due Date: Nov 01, 2018 : 5 Para: 4 Spontaneous : 0 Therapeutic : 0 Care: Good Care Ultrasounds: Normal mid trimester US Obstetrical Complications: None Medical Complications: None Past Family/Social History * Past Medical, Surgical, Family and Obstetric Histories reviewed from chart. Blood Type: A+ Rubella: immune RPR/VDRL: Negative GBS Status: Negative HBsAG: Negative OB Admission Exam Vital Signs Vital Signs Vital Signs Date Temp Pulse Resp B/P (MAP) Pulse Ox O2 O2 Flow FiO2 Time Delivery Rate 10/12/18 99.3 88 20 127/72 99 Room Air 13:33 (90) Physical Exam HEENT: WNL Heart: Rhythm Normal Lungs: Clear Abdomen: WNL Extremities: Normal Cervical Dilatation: 1cm Effacement: 75% Station: -3 Membranes: Intact Heart Rate: 140's Accelerations: Accelerations Present Decelerations: No Decelerations Varibility: Moderate Contractions on Admission: 6-10 Minutes Apart Intensity: Mild Last 72 hours Lab Results CBC & BMP 10/12/18 16:06 OB Assessment/Plan Other plan: 22 years old 004 with 3 previous delivery at 37 weeks and 1 day with oligohydramnios in early labor. She is desiring repeat delivery and permanent surgical sterilization. - FHR: No sign of metabolic acidosis- Category I - Continuous EFM, toco - CBC, blood type and screen - Please see the orders - A+/Rubella: Immune - GBS: negative The risk of delivery including but not limited to bleeding, infection, injury to other organs (bowel, bladder, ureter, vessels, nerves), injury to fetus, blood transfusion, blood transfusion related infection, risk of anesthesia, adhesion, needs for future , removal of uterus or any other indicated surgery, permanent surgical sterilization, other contraceptive options including IUD, increased risk of ectopic if failure of procedure occurs discussed with the patient and her family. She expressed understanding. All of her questions were answered. She signed the informed consent. PHYSICIAN'S VERIFICATION OF INFORMED CONSENT The patient and her partner counseled regarding the procedure, its indications, risks, potential complications and alternatives and any questions were answered. Consent was obtained. PLANNED PROCEDURE/TREATMENT: delivery with possible using vacuum/forceps and any other indicated surgery PHYSICIAN'S VERIFICATION OF INFORMED CONSENT FOR BLOOD TRANSFUSION: There is a reasonable possibility that blood transfusion will be necessary as a result of the patient's procedure. I have discussed the following with the patient/patient's legal public health representative: An explanation of the benefits and risks of the transfusion of blood or blood products and the possible alternatives. All questions have been answered to the patient's satisfaction. INFORMED CONSENT:The patient has been informed of: The nature of the proposed care, treatment, services, medications, interventions or procedures. Potential benefits, risks or side effects, including potential problems related to recuperation. The likelihood of achieving care treatment and service goals. Reasonable alternatives to the proposed care, treatment and service. The relevant risks, benefits and side effects related to alternatives, including the possible results of not receiving care, treatment and services. When indicated, any limitations on the confidentiality of information learned from or about the patient. If appropriate, the risks, benefits and alternatives of the drugs to be used for sedation/analgesia including moderate sedation. If appropriate, patient has been provided information on the risks, benefits and alternatives to the transfusion of blood and/or blood products. If appropriate, patient has been provided information regarding the [employer] Blood Act. JOHN CAMPBELL Oct 12, 2018 18:07
[2018-10-12] MEDS ORDERED: ONDANSETRON 4 MG INJ ONE (18:14)
[2018-10-12] MEDS ORDERED: OXYTOCIN 10 UNIT INJ ONE ×2 (18:14→18:55)
[2018-10-12] MEDS ORDERED: morphine SULFATE/PF (10 MG/10 ML) INJ ONE (18:14)
[2018-10-12] MEDS ORDERED: PHENYLephrine (100 MCG/ML) 10ML SYG ONE (18:14)
--- NOTE | 2018-10-12 18:36 | PREAC ---
Date/Time of Note Date/Time of Note DATE: 10/12/18 TIME: 18:34 Anesthesia Eval and Record Evaluation Time Pre-Procedure Interview DATE: 10/12/18 TIME: 18:34 Age 22 Sex female NPO: 8 hrs Preoperative diagnosis IUP Planned procedure Repeat Csection Past Medical History Past Medical History: Includes Surgery & Anesthesia Issues No known issue Meds Anticoagulation: No Beta Shannen within 24 hr: No Reason Beta Shannen not given: Pt. not on B-Shannen Active Scripts Acetaminophen* (Tylophen*) 500 Mg Capsule, 1 CAP PO Q6H PRN for PAIN AND OR ELEVATED TEMP, #20 CAP Prov:SALOMON,RODRIGUEZ 12/24/17 Reported Medications Multivit/Min/Fol Ac/Iron/Pren* ( S*) 1 Tab Tab, 1 TAB PO DAILY, TAB 09/28/16 Current Medications Lactated Ringer's 1,000 ml @ 125 mls/hr Q8H IV Last administered on 10/12/18at 16:30; Admin Dose 125 MLS/HR; Start 10/12/18 at 14:49 Cefazolin Sodium/ Dextrose 50 ml @ 100 mls/hr ONCE IVPB ; Start 10/12/18 at 15:00 Oxytocin/Lactated Ringer's 500 ml @ 125 mls/hr POST IV ; Start 10/12/18 a t 15:00 Oxytocin/Lactated Ringer's 500 ml @ 0 mls/hr ONCE PRN IV VAGINAL BLEEDING; Start 10/12/18 at 15:00 Methylergonovine Maleate (Methergine) 0.2 mg ONCE PRN IM VAGINAL BLEEDING; Start 10/12/18 at 15:00 Carboprost Tromethamine (Hemabate) 250 mcg ONCE PRN IM VAGINAL BLEEDING; Start 10/12/18 at 15:00 Misoprostol (Cytotec) 1,000 mcg ONCE PRN MA VAGINAL BLEEDING; Start 10/12/18 at 15:00 Meds reviewed: Yes Allergies Coded Allergies: No Known Allergy (Unverified , 10/12/18) Allergies Reviewed: Yes Labs/Studies Labs Reviewed: Reviewed by anesthesiologist Result Diagram: 10/12/18 1606 Laboratory Tests 10/12/18 16:06 Blood Bank Test 10/12/18 16:06 Antibody Screen NEGATIVE Blood Product Summary Counts Blood Type A POSITIVE Crossmatch Red Blood Cells Rh Immune Globulin Candidate NO test: Positive Studies: ECG Pre-procedure Exam Last vitals Vital Signs Date Temp Pulse Resp B/P (MAP) Pulse Ox O2 O2 Flow FiO2 Time Delivery Rate 10/12/18 99.3 88 20 127/72 99 Room Air 13:33 (90) Airway: Adequate mouth opening, Adequate thyromental dist Mallampati: Mallampati II Teeth: Normal Lung: Normal Heart: Normal ASA Physical Status ASA physical status: 2 Emergency: None Planned Anesthetic Neuraxial: Spinal Planned Pain Management Sub-arachniod narcotics, Parenteral pain med Pre-operative Attestations Prior to commencing anesthesia and surgery, the patient was re-evaluated, there was verification of: *The patient's identity *The results of appropriate recent lab work and preoperative vital signs *The above evaluation not changing prior to induction *Anesthetic plan, risk benefits, alternative and complications discussed with patient/family; questions answered; patient/family understands, accepts and wishes to proceed. MARCELL LINARES MD Oct 12, 2018 18:36
--- NOTE | 2018-10-12 19:57 | PAC ---
Date/Time of Note Date/Time of Note DATE: 10/12/18 TIME: 19:55 Post-Anesthesia Notes Post-Anesthesia Note Last documented vital signs Vital Signs Date Temp Pulse Resp B/P (MAP) Pulse Ox O2 O2 Flow FiO2 Time Delivery Rate 10/12/18 99.3 88 20 127/72 99 Room Air 13:33 (90) Activity: WNL Respiratory function: WNL Cardiovascular function: WNL Mental status: Baseline Pain reasonably controlled: Yes Hydration appropriate: Yes Nausea/Vomiting absent: Yes Comments BP:108/65, pulse:78,T:98,8, spo2:100% MARCELL LINARES MD Oct 12, 2018 19:57
[2018-10-12] MEDS ORDERED: ONDANSETRON 4 MG INJ IV PRN (20:00)
[2018-10-12] MEDS ORDERED: morphine 2 MG INJ IV PRN (20:00)
[2018-10-12] MEDS ORDERED: NALOXONE (0.4 MG/ML) INJ IV PRN (20:00)
[2018-10-12] MEDS: KETOROLAC 30 MG INJ IV PRN (21:06)
[2018-10-12] MEDS: OXYTOCIN 30 UNITS/LR 500 ML IV SCH ×2 (21:12→22:48)
[2018-10-12] MEDS: DIPHENHYDRAMINE 50 MG INJ IV PRN (21:46)
[2018-10-12] MEDS ORDERED: OXYTOCIN 30 UNITS/LR 500 ML IV SCH (21:57)
[2018-10-12] MEDS ORDERED: LANOLIN HPA 1 PKT TOP PRN (22:00)
[2018-10-12] MEDS ORDERED: METHYLERGONOVINE 0.2 MG TAB PO PRN (22:00)
--- NOTE | 2018-10-12 22:10 | OPR ---
Operative Report Planned Procedure Procedure date Oct 12, 2018 Procedure(s) 1. Repeat low transverse delivery 2. Bilateral tubal ligation Performed by see signature line Plastic Surgeon: RANDY DE LA ROSA MD Anesthesiologist: MARCELL LINARES MD Pre-procedure diagnosis 22 years old with 3 previous delivery at 37 weeks and 1 day desiring repeat delivery and permanent surgical sterilization [id number] Anesthesia Type: [id number] spinal Post-Procedure Post-procedure diagnosis 22 years old with 3 previous delivery at 37 weeks and 1 day desiring repeat delivery and permanent surgical sterilization Findings 1. Normal uterus except there was a 7 cm window at the lower uterine segment. Normal fallopian tubes and ovaries 2. Viable male in cephalic presentation. 8 at one minute and 9 in 5 minutes. Weight: 2530 g - 5 pounds 9 ounces. Time of delivery: 18:54 3. Placenta with three vessel cord 4. Amniotic fluid - Clear Estimated Blood Loss: 600 - 700 mls Specimen(s) Right and left fallopian tube Grafts/Implant(s) none Complication(s) none Pt Condition post procedure: stable Disposition: PACU Procedure Description INDICATION AND HISTORY: A 22 years old with 3 previous delivery at 37 weeks and 1 day desiring repeat delivery and permanent surgical sterilization. The risk of delivery including but not limited to bleeding, infection, injury to other organs (bowel, bladder, ureter, vessels, nerves), injury to fetus, blood transfusion, blood transfusion related infection, risk of anesthesia, adhesion, needs for future , removal of uterus or any other indicated surgery, permanent surgical sterilization, other contraceptive options including IUD, increased risk of ectopic if failure occurs discussed with the patient and her family. She expressed understanding. All of her ques tions were answered. She signed the informed consent. DESCRIPTION OF OPERATION: The patient was taken to the operating room, where she was identified and the procedure was verified. The patient received two gram of Ancef 30 minutes prior to surgery. Spinal anesthesia was placed. The patient placed in the dorsal supine position with a left tilt. The heart rate was 137 bpm. The patient was then prepped and draped in the normal sterile fashion. A Pfannenstiel skin incision was made and carried down to the fascia with knife. The fascia was incised in the midline and the fascial incision was carried laterally with Hernadez scissors. The superior portion of the fascial incision was then grasped with Litzy clamps and tented up and dissected off the underlying rectus muscle with sharp dissection. The lower portion of the fascial incision was then made in a similar fashion. The rectus muscle was and the peritoneum was entered. The peritoneal incision was then stretched and an Cam retractor was inserted. Noted above, there was a 7 cm window at lower uterine segment. Then, an incision was made above the lower uterine segment and window in a transverse fashion with a knife and extended bluntly. The was delivered atraumatically in cephalic presentation with the above findings. The umbilical cord was clamped and cut. The neonatology resuscitation team was present and the baby was handed to them. A cord blood sample was obtained for further evaluation. The placenta and membrane, which appeared normal were Removed. The uterus was cleared of all clot and debris. The uterus was then closed in a two layer fashion with 0-Monocryl. At the time of closure, hemostasis was noted. Then the left fallopian tube was identified and was gra sped using Danvers clamp, segment of distal fallopian tube including fimbria was double ligated with O- plain, excised and sent to pathology. Same procedure repeated at the right side. Hemostasis of stump of both fallopian tube reassured. The gutters were irrigated. The peritoneum was reapproximated with 3-0 Vicryl. The muscle was reapproximated with 3-0 Vicryl. The fascia was approximated with 0-Vicryl in a running fashion. *The subcutaneous tissue was re approximated with 3-0 vicryl. The skin was closed with 4-0 Monocryl. All instruments, sponges and needle counts were correct x3. The patient tolerated the procedure well. She transferred to the recovery room in stable condition. JOHN CAMPBELL Oct 12, 2018 22:10
[2018-10-12 22:20] VITALS: BP 119/61; PULSE 74; RESP 18
[2018-10-12] MEDS ORDERED: HYDROCODONE/APAP (5/325) TAB PO PRN (23:30)
[2018-10-13] VITALS: BP 101/60; PULSE 86; RESP 17
[2018-10-13] MEDS: DEXTROSE 5%-LR 1,000 ML IV SCH ×3 (02:49→13:57)
[2018-10-13 04:00] VITALS: BP 122/68; PULSE 85; RESP 18
[2018-10-13] MEDS: DIPHENHYDRAMINE 50 MG INJ IV PRN (05:51)
[2018-10-13 07:50] VITALS: BP 96/54; PULSE 64; RESP 16
[2018-10-13] MEDS: SENNA/DOCUSATE NA (8.6MG/50MG) TAB PO SCH ×2 (08:50→22:45)
[2018-10-13] MEDS ORDERED: DIPHTH/TET/ACEL PERTUSS (ADULT) 0.5 ML VIAL IM* ONE (11:00)
[2018-10-13] MEDS ORDERED: HYDROCODONE/APAP (5/325) TAB NGT PRN (11:00)
[2018-10-13 12:14] VITALS: BP 91/50; PULSE 67; RESP 16
[2018-10-13] MEDS: KETOROLAC 30 MG INJ IV PRN (12:14)
[2018-10-13] MEDS ORDERED: HYDROCODONE/APAP (5/325) TAB GTB SCH (14:00)
--- NOTE | 2018-10-13 14:05 | PN ---
Date/Time of Note Date/Time of Note DATE: 10/13/18 TIME: 14:02 OB Subjective Subjective Subjective Has not been out of the bed yet. Exclusively breast-feeding. Reports decreased vaginal bleeding. Pain well-controlled with p.o. pain medication. Tolerated clear liquid diet. OB Objective Objective Objective Appearance: Alert and oriented x4 does not appear to be in any acute distress abdomen: Soft, fundus palpable And appropriate tenderness and palpable below the umbilicus. Incision: Clean dry and intact [place] draining clear yellow urine Lungs: Clear to auscultation bilaterally CV: RRR Extremities: No calf tenderness, no click no cord palpable SCDs are on Laboratory Tests 10/13/18 07:25 Blood Bank Test 10/12/18 16:06 Antibody Screen NEGATIVE Blood Product Summary Counts Blood Type A POSITIVE Crossmatch Red Blood Cells Rh Immune Globulin Candidate NO OB Assessment/Plan Other Assessment: postoperative day #1 Status post repeat section and bilateral tubal sterilization Doing well Routine postop care Mild anemia, postop, asymptomatic Start ambulation. YARI [place], advance diet to regular diet Advised to use incentive spirometer BASILIO DIANA MD Oct 13, 2018 14:05
[2018-10-13 15:30] VITALS: BP 103/58; PULSE 87; RESP 18
[2018-10-13] MEDS: MAGNESIUM HYDROXIDE 30ML CUP PO PRN (16:16)
[2018-10-13 20:09] VITALS: BP 110/60; RESP 18
[2018-10-13] MEDS: IBUPROFEN 800 MG TAB PO SCH (22:45)
[2018-10-14 00:10] VITALS: BP 105/55; PULSE 66; RESP 18
[2018-10-14 04:30] VITALS: BP 105/60; PULSE 61; RESP 18
[2018-10-14] MEDS: IBUPROFEN 800 MG TAB PO SCH ×3 (06:01→22:18)
[2018-10-14 08:05] VITALS: BP 110/57; PULSE 69; RESP 18
[2018-10-14] MEDS: MAGNESIUM HYDROXIDE 30ML CUP PO PRN (08:46)
[2018-10-14] MEDS: SENNA/DOCUSATE NA (8.6MG/50MG) TAB PO SCH ×2 (08:46→20:34)
[2018-10-14 15:45] VITALS: BP 107/59; PULSE 67; RESP 19
[2018-10-14 19:55] VITALS: BP 108/57; PULSE 74; RESP 18
[2018-10-14 20:15] VITALS: BP 105/66; PULSE 66; RESP 18
--- NOTE | 2018-10-14 23:49 | PN ---
Date/Time of Note Date/Time of Note DATE: 10/14/18 TIME: 23:46 OB Subjective Subjective Subjective POD#2 Patient is doing well. She denies nausea, vomiting, shortness of breath, chest pain, headache. She has been ambulating without difficulty, tolerating regular diet. Pain is well controlled on current medications OB Objective Objective Objective VS - Last 72 Hours, by Label Date Temp Pulse Resp B/P (MAP) Pulse Ox O2 O2 Flow FiO2 Time Delivery Rate 10/14/18 98.0 74 18 108/57 Room Air 19:55 (74) 10/14/18 98.7 67 19 107/59 Room Air 15:45 (75) 10/14/18 98.0 69 18 110/57 Room Air 08:05 (74) 10/14/18 98.0 61 18 105/60 Room Air 04:30 (75) 10/14/18 98.2 66 18 105/55 Room Air 00:10 (72) 10/13/18 98.4 18 110/60 Room Air 20:09 (77) 10/13/18 98.0 87 18 103/58 99 Room Air 15:30 (73) 10/13/18 97.8 67 16 91/50 (64) 99 Room Air 12:14 10/13/18 97.9 64 16 96/54 (68) 100 Room Air 07:50 10/13/18 98.2 85 18 122/68 98 04:00 (86) 10/13/18 98.0 86 17 101/60 97 Room Air 00:00 (74) 10/12/18 98.3 74 18 119/61 96 Room Air 22:20 (80) 10/12/18 99.3 88 20 127/72 99 Room Air 13:33 (90) General: AAO X 3, comfortable, NAD, appropriate mood and affect. ABD: +BS. Soft, non-tender. Uterus 2 cm below umbilicus Incision: Clear, dry, intact. No erythema, drainage or induration. Flank: No CVA tenderness (B/L) LE: Mild edema. No clubbing, cyanosis, thigh or calf tenderness (B/L). Homans 'sign is negative OB Assessment/Plan Other plan: 22-year-old s/p repeat delivery and bilateral tubal ligation. POD#2 - Contraception methods with R/B/A/FR discussed - Continue care - Discharge home tomorrow - Rx and instruction given - Follow up in one and 6 weeks JOHN CAMPBELL Oct 14, 2018 23:49
[2018-10-15 04:25] VITALS: BP 108/66; PULSE 68; RESP 18
[2018-10-15] MEDS: IBUPROFEN 800 MG TAB PO SCH ×2 (05:40→13:27)
[2018-10-15 07:45] VITALS: BP 104/71; PULSE 70; RESP 17
[2018-10-15] MEDS ORDERED: MEASLES,MUMPS,RUBELLA VACCINE INJ SC* ONE (09:00)
[2018-10-15] MEDS ORDERED: DIPHTH/TET/ACEL PERTUSS (ADULT) 0.5 ML VIAL IM* ONE (09:00)
[2018-10-15] MEDS: MAGNESIUM HYDROXIDE 30ML CUP PO PRN (09:27)
[2018-10-15] MEDS: SENNA/DOCUSATE NA (8.6MG/50MG) TAB PO SCH (09:27)
--- NOTE | 2018-10-15 12:30 | DS ---
Date/Time of Note Date/Time of Note DATE: 10/15/18 TIME: 12:29 Obstetrical Discharge Record Final Diagnosis Final Diagnosis: Term delivered Other Final Diagnosis 22-year-old s/p repeat delivery and bilateral tubal ligation. POD#3. Her course was unremarkable. She is ambulating and tolerating regular diet. She is voiding without difficulty. Pain is well controlled on current medication. - AF, VSS - Continue care - Discharge home - Rx and instruction given - Follow up in one and 6 weeks Section Section: Repeat Condition on Discharge Physical Assessment Last Vitals: Vital Signs Date Temp Pulse Resp B/P (MAP) Pulse Ox O2 O2 Flow FiO2 Time Delivery Rate 10/15/18 97.8 70 17 104/71 Room Air 07:45 (82) 10/13/18 99 15:30 Voiding: Yes Bowel Movement: Yes Breast: Soft, non-tender Fundus: Firm Calf Tenderness: No Patient Condition: Stable JOHN CAMPBELL Oct 15, 2018 12:30
== END 2018-10-15 14:05 | disposition home or self-care (01) | DRG 785 ==
LOC: OBT 13:21 → L-D 13:21 → OBT 14:45 → L-D 14:45 → PP1 22:25
PROVIDERS: ADMIT Obstetrics & Gynecology; ATTEND Obstetrics & Gynecology
PROC: 10D00Z1 Extraction of Products of Conception, Low, Open Approach (ICD-10-PCS; principal; 2018-10-12)
PROC: 0UT70ZZ Resection of Bilateral Fallopian Tubes, Open Approach (ICD-10-PCS; 2018-10-12)
DX: O34.211 Maternal care for low transverse scar from previous cesarean delivery (principal); Z3A.37 37 weeks gestation of pregnancy; Z37.0 Single live birth; Z30.2 Encounter for sterilization
CPT/HCPCS: 76818; 81003; 85025; 85610; 85730; 86592; 86850; 86900; 86901; 86920; 88302; 90715; 99464; G0463; J0690; J1200; J1885; J2274; J2370; J2405; J2590; J7120; J7121